=== PATIENT | female | born 1995 | race Caucasian/White ===

== ENCOUNTER 2018-02-27 18:36 | Inpatient (IN) | END 2018-03-03 11:00 | disposition home or self-care (01) | DRG 386 ==

== ENCOUNTER 2018-08-14 07:07 | Day surgery (SDC) | END 2018-08-14 12:15 | disposition home or self-care (01) ==

== ENCOUNTER 2018-08-19 10:35 | Emergency (ER) | END 2018-08-19 11:45 | disposition home or self-care (01) ==